=== PATIENT | female | born 1975 | race Caucasian/White ===

== ENCOUNTER 2020-03-01 16:15 | Emergency (ER) | payer OTHER ==
[2020-03-01 16:49] VITALS: BP 119/78; PULSE 94; TEMP 98.6; BMI 24.5
[2020-03-01] MEDS ORDERED: ACETAMINOPHEN 325 MG TABLET (FP) PO ONE (16:53)
[2020-03-01] MEDS ORDERED: ACETAMINOPHEN 500 MG TABLET (FP) ONE (17:30)
[2020-03-01] MEDS ORDERED: SODIUM CHLORIDE 0.9% 500 ML INFUS.BAG IV ONE (17:32)
[2020-03-01 17:49] LABS: BASO % 0.4 % (0-2.0); EOS % 0.4 % (0-4.5); HEMATOCRIT 35.2 % (32.4-45.2); HEMOGLOBIN 12.1 GM/dl (10.7-15.3); LYMPH % 8.5 % (8-40); MCH 30.2 pg (25.7-33.7); MCHC 34.3 g/dl (32.0-36.0); MEAN CELL VOLUME 88.1 fl (80-96); MEAN PLT VOLUME 7.2 fl (7.5-11.1); MONO % 2.7 % (3.8-10.2); PLATELET COUNT 347 K/MM3 (134-434); RDW 12.4 % (11.6-15.6); WHITE BLOOD COUNT 8.4 K/mm3 (4.0-10.8)
[2020-03-01 18:05] LABS: ALBUMIN 4.5 g/dl (3.4-5.0); BILIRUBIN,TOTAL 0.8 mg/dl (0.2-1); CALCIUM 9.2 mg/dl (8.5-10); CREATININE 0.5 mg/dl (0.55-1.3); TOT PROT 7.6 g/dl (6.4-8.2)
== END 2020-03-01 18:24 | disposition home or self-care (01) ==
LOC: FER 16:15
DX: M79.605 Pain in left leg (principal); Z98.890 Other specified postprocedural states
CPT/HCPCS: 36415; 80053; 85025; 93971-TC; 99282-25

== ENCOUNTER 2021-11-21 12:38 | Emergency (ER) | payer OTHER ==
[2021-11-21 13:06] VITALS: BP 119/82; PULSE 78; RESP 20; TEMP 98; BMI 23.6
[2021-11-21 13:59] LABS: HEMATOCRIT 37.1 % (32.4-45.2); HEMOGLOBIN 13.2 G/dL (10.7-15.3); MCH 32.2 pg (25.7-33.7); MCHC 35.6 g/dl (32.0-36.0); MEAN CELL VOLUME 90.6 fl (80-96); MEAN PLT VOLUME 7.5 fl (7.5-11.1); PLATELET COUNT 260.7 10^3/uL (134-434); RDW 13.7 % (11.6-15.6); WHITE BLOOD COUNT 11.2 10^3/uL (4.0-10.8)
[2021-11-21 14:01] LABS: ALBUMIN 4.6 g/dl (3.4-5.0); BILIRUBIN,TOTAL 0.7 mg/dl (0.2-1); CALCIUM 9.6 mg/dl (8.5-10); CREATININE 0.6 mg/dl (0.55-1.3); MAGNESIUM 2.1 mg/dL (1.8-2.4); TOT PROT 7.3 g/dl (6.4-8.2)
[2021-11-21 14:34] LABS: PLATELET ESTIMATE ADEQUATE
== END 2021-11-21 16:40 | disposition left against medical advice (07) ==
LOC: FER 12:38
DX: R07.9 Chest pain, unspecified (principal)
CPT/HCPCS: 36415; 71046-TC-FY; 80053; 83735; 84443; 84484; 85025; 85379; 93005; 99285-25